=== PATIENT | female | born 1990 | race Caucasian/White ===

== ENCOUNTER 2017-05-30 19:02 | Observation (INO) | payer OTHER ==
[~2017-05-30] VITALS: Ht 149.9 cm; Wt 65.7 kg
[2017-05-30 19:27] LABS: BASOPHILS % (AUTO) 0.6 % (0.0-2.0); EOSINOPHILS % (AUTO) 0.3 % (1.0-6.0); HEMATOCRIT 37.9 % (36-46); HEMOGLOBIN 12.9 g/dL (12.0-16.0); LYMPHOCYTES # (AUTO) 2.2 K/uL (1.0-4.8); LYMPHOCYTES % (AUTO) 22.1 % (22.0-44.0); MEAN CORPUSCULAR HEMOGLOBIN 28.8 pg (26.0-34.0); MEAN CORPUSCULAR HGB CONC 33.9 G/dL (31.0-37.0); MEAN CORPUSCULAR VOLUME 85 fL (80-100); MONOCYTES # (AUTO) 0.7 K/uL (0.1-1.0); MONOCYTES % (AUTO) 6.7 % (2.0-9.0); NEUTROPHILS # (AUTO) 6.9 K/uL (1.8-7.7); PLATELET COUNT (AUTO) 441 K/uL (150-450); RED BLOOD CELL COUNT(AUTO) 4.47 MIL/uL (4.00-5.20)
[2017-05-30 19:39] LABS: ANION GAP 9 mmol/L (8-16); CALCIUM, TOTAL 8.9 mg/dL (8.8-10.5); CARBON DIOXIDE 23 mmol/L (22-29); CHLORIDE 101 mmol/L (98-107); CREATININE 0.52 mg/dL (0.60-1.30); GLOMERULAR FILTR. RATE CALC > 60 mL/min (>60); GLUCOSE,RANDOM 79 mg/dL (70-110); POTASSIUM 4.2 mmol/L (3.5-5.1); SODIUM SERUM 133 mmol/L (136-145); UREA NITROGEN, BLOOD 7 mg/dL (7-18)
[2017-05-30 19:45] LABS: ALANINE AMINOTRANSFERASE 139 U/L (12-78); ALBUMIN 2.5 g/dL (3.4-5.0); ALKALINE PHOSPHATASE 373 U/L (46-116); ASPARTATE AMINOTRANSFERASE 76 U/L (15-37); TOTAL PROTEIN, SERUM 6.9 g/dL (6.4-8.2)
[2017-05-30] MEDS ORDERED: QUES4 PO (19:55)
[2017-05-30 19:57] LABS: NEUTROPHILS % (AUTO) 70.3 % (40.0-70.0); PLATELET MORPHOLOGY COMMENT GIANT PLTS PRESENT
[2017-05-30] MEDS ORDERED: PREN1TAB80 PO (19:57)
[2017-05-30] MEDS ORDERED: URSO300C4 PO (19:59)
[2017-05-30 20:06] VITALS: BP 109/63
[2017-05-30] MEDS ORDERED: INFLUENZA VIRUS VACCINE QVS 2017-18 (3YR+)/PF 60 MCG/0.5 ML SYRINGE IM ONE (20:30)
[2017-05-30] MEDS: BETAMETHASONE SOLUSPAN 6 MG/ML 5 ML VIAL IM SCH (21:40)
[2017-05-30] MEDS: URSODIOL 300 MG CAPSULE PO SCH (21:56)
[2017-05-31] MEDS: URSODIOL 300 MG CAPSULE PO SCH (06:13)
[2017-05-31] MEDS: BETAMETHASONE SOLUSPAN 6 MG/ML 5 ML VIAL IM SCH (09:47)
[2017-05-31 14:05] LABS: GLUCOMETER DEV NAME(LOC) 4S 8; GLUCOSE,POINT OF CARE 84 MG/DL (70-110)
[2017-05-31 14:05] LABS: GLUCOMETER DEV NAME(LOC) 4S 8; GLUCOSE,POINT OF CARE 126 MG/DL (70-110)
[2017-05-31 14:08] LABS: GLUCOMETER DEV NAME(LOC) 4S 8; GLUCOSE,POINT OF CARE 135 MG/DL (70-110)
== END 2017-05-31 10:10 | disposition home or self-care (01) ==
LOC: 4S 19:02
PROVIDERS: ADMIT Obstetrics & Gynecology; ATTEND Obstetrics & Gynecology
DX: Z34.03 Encounter for supervision of normal first pregnancy, third trimester (principal); Z3A.35 35 weeks gestation of pregnancy
CPT/HCPCS: 36415; 59025 ×2; 80053; 82239; 82962 ×2; 83036; 85025; 90471; 96372 ×2; G0378 ×2; J0702 ×2

== ENCOUNTER 2017-06-02 09:02 | Observation (INO) | payer OTHER ==
[~2017-06-02] VITALS: Ht 150 cm; Wt 65.8 kg
[~2017-06-02 09:02] MED LIST: PREN1TAB80 PO; QUES4 PO; URSO300C4 PO
[2017-06-02 09:20] VITALS: BP 120/58
[2017-06-02 09:47] LABS: GLUCOMETER DEV NAME(LOC) 4S 8; GLUCOSE,POINT OF CARE 147 MG/DL (70-110)
== END 2017-06-02 12:00 | disposition home or self-care (01) ==
LOC: 4S 09:02
PROVIDERS: ADMIT Obstetrics & Gynecology; ATTEND Obstetrics & Gynecology
DX: Z34.03 Encounter for supervision of normal first pregnancy, third trimester (principal); Z3A.35 35 weeks gestation of pregnancy
CPT/HCPCS: 59025; 82962; G0378

== ENCOUNTER 2017-06-03 20:00 | Inpatient (IN) | payer OTHER ==
[~2017-06-03] VITALS: Ht 157.5 cm; Wt 64.4 kg
[2017-06-03 20:36] VITALS: BP 120/58
[2017-06-03] MEDS ORDERED: OXYTOCIN 30 UNITS/LACT RINGERS 500 ML IV ONE (20:59)
[2017-06-03] MEDS ORDERED: RINGERS SOLUTION,LACTATED 1,000 ML IV PRN (20:59)
[2017-06-03] MEDS ORDERED: METOCLOPRAMIDE HCL 5 MG/ML 2 ML VIAL IVP PRN (21:00)
[2017-06-03] MEDS ORDERED: CITRIC ACID/SODIUM CITRATE 30 ML SOLUTION UDCUP PO PRN (21:00)
[2017-06-03 21:22] LABS: GLUCOMETER DEV NAME(LOC) 4S 8; GLUCOSE,POINT OF CARE 123 MG/DL (70-110)
[2017-06-03 21:33] LABS: HEMATOCRIT 35.8 % (36-46); HEMOGLOBIN 12.2 g/dL (12.0-16.0); MEAN CORPUSCULAR HEMOGLOBIN 28.6 pg (26.0-34.0); MEAN CORPUSCULAR HGB CONC 33.9 G/dL (31.0-37.0); MEAN CORPUSCULAR VOLUME 84 fL (80-100); PLATELET COUNT (AUTO)-OB 528 K/uL (150-450); RED BLOOD CELL COUNT(AUTO) 4.25 MIL/uL (4.00-5.20); RED CELL DISTRIBUTION WIDTH 13.9 % (11.5-14.5)
[2017-06-03 21:55] LABS: BAND NEUTROPHILS % (MANUAL) 6 % (1-5); LYMPHOCYTES % (MANUAL) 25 % (22-44); MONOCYTES % (MANUAL) 13 % (2-9); SEGMENTED NEUTROPHILS % 56 % (40-70)
[2017-06-03] MEDS ORDERED: AMPICILLIN SODIUM 2 GM/NS 100 ML IV ONE (23:00)
[2017-06-03] MEDS ORDERED: DINOPROSTONE 10 MG VAGINAL SUPPOSITORY VG ONE (23:00)
[2017-06-03] MEDS: URSODIOL 300 MG CAPSULE PO SCH (23:08)
[2017-06-03] MEDS: RINGERS SOLUTION,LACTATED 1,000 ML IV SCH (23:08)
[2017-06-03 23:59] LABS: RUBELLA SCREEN (IGG) IMMUNE (IMMUNE)
[2017-06-04] MEDS: RINGERS SOLUTION,LACTATED 1,000 ML IV SCH ×3 (03:21→16:51)
[2017-06-04] MEDS: AMPICILLIN SODIUM 1 GM/NS 50 ML IV SCH ×5 (03:21→20:32)
[2017-06-04 03:42] LABS: GLUCOMETER DEV NAME(LOC) 4S 8; GLUCOSE,POINT OF CARE 121 MG/DL (70-110)
[2017-06-04] MEDS ORDERED: DEXTROSE 50%-WATER 25 GM/50 ML SYRINGE IVP PRN (07:15)
[2017-06-04] MEDS ORDERED: INSULIN LISPRO 100 UNITS/ML SQ PRN (07:15)
[2017-06-04] MEDS: FentaNYL CITRATE-PF 100 MCG/2 ML VIAL IVP PRN ×4 (07:50→12:49)
[2017-06-04] MEDS ORDERED: OXYGEN THERAPY IH SCH (08:00)
[2017-06-04] MEDS: URSODIOL 300 MG CAPSULE PO SCH ×3 (08:56→21:13)
[2017-06-04] MEDS ORDERED: -PHARMACY NOTE- MISC ONE (10:00)
[2017-06-04] MEDS ORDERED: OXYTOCIN 30 UNITS/LACT RINGERS 500 ML IV PRN (12:10)
[2017-06-04 14:18] LABS: GLUCOMETER DEV NAME(LOC) 4S 8; GLUCOSE,POINT OF CARE 94 MG/DL (70-110)
[2017-06-04 14:18] LABS: GLUCOMETER DEV NAME(LOC) 4S 8; GLUCOSE,POINT OF CARE 116 MG/DL (70-110)
[2017-06-04] MEDS ORDERED: LIDOCAINE HCL/PF 2% 5 ML VIAL ONE (15:38)
[2017-06-04] MEDS ORDERED: ROPIVACAINE HCL/PF 0.2% 100 ML ED ONE ×2 (15:38→22:33)
[2017-06-04] MEDS ORDERED: FentaNYL/BUPIV 0.125%/NS/PF 200 ML ED PRN (16:09)
[2017-06-04] MEDS ORDERED: ONDANSETRON HCL 4 MG/2 ML VIAL IVP PRN (16:15)
[2017-06-04] MEDS ORDERED: NALBUPHINE HCL 10 MG/ML VIAL IVP PRN (16:15)
[2017-06-04] MEDS ORDERED: DiphenhydrAMINE HCL 50 MG/ML VIAL IVP PRN (16:15)
[2017-06-04] MEDS ORDERED: MISOPROSTOL 25 MCG TABLET VG ONE (17:45)
[2017-06-04 21:17] LABS: GLUCOMETER DEV NAME(LOC) 4S 8; GLUCOSE,POINT OF CARE 77 MG/DL (70-110)
[2017-06-04 21:28] LABS: GLUCOMETER DEV NAME(LOC) 4S 8; GLUCOSE,POINT OF CARE 78 MG/DL (70-110)
[2017-06-05] MEDS: AMPICILLIN SODIUM 1 GM/NS 50 ML IV SCH ×2 (00:54→05:14)
[2017-06-05 01:07] LABS: GLUCOMETER DEV NAME(LOC) 4S 8; GLUCOSE,POINT OF CARE 78 MG/DL (70-110)
[2017-06-05 05:27] LABS: GLUCOMETER DEV NAME(LOC) 4S 8; GLUCOSE,POINT OF CARE 89 MG/DL (70-110)
[2017-06-05] MEDS ORDERED: LIDOCAINE HCL/PF 1% 30 ML VIAL ONE ×2 (07:03→07:04)
[2017-06-05] MEDS ORDERED: BENZOCAINE 20%/MENTHOL 56 GM SPRAY CANISTER TP PRN ×2 (08:45→10:00)
[2017-06-05] MEDS ORDERED: LANOLIN 7 GM OINTMENT TP PRN ×2 (08:45→10:00)
[2017-06-05] MEDS ORDERED: GLYCERIN/WITCH HAZEL LEAF 40 PADS JAR TP PRN ×2 (08:45→10:00)
[2017-06-05] MEDS ORDERED: OxyCODONE HCL/ACETAMINOPHEN 5-325 MG TABLET PO PRN ×3 (08:45→10:00)
[2017-06-05] MEDS: MAGNESIUM HYDROXIDE SUSPENSION 30 ML UDCUP PO PRN ×2 (08:47→21:43)
[2017-06-05] MEDS: IBUPROFEN 600 MG TABLET PO PRN ×2 (08:48→18:03)
[2017-06-05] MEDS ORDERED: MAGNESIUM HYDROXIDE SUSPENSION 30 ML UDCUP PO PRN (10:00)
[2017-06-05] MEDS ORDERED: IBUPROFEN 600 MG TABLET PO PRN (10:00)
[2017-06-05] MEDS: OxyCODONE HCL/ACETAMINOPHEN 5-325 MG TABLET PO PRN ×2 (12:25→18:03)
[2017-06-05] MEDS: RINGERS SOLUTION,LACTATED 1,000 ML IV SCH (12:26)
[2017-06-06 07:12] LABS: BASOPHILS % (AUTO) 0.4 % (0.0-2.0); EOSINOPHILS % (AUTO) 0.5 % (1.0-6.0); HEMOGLOBIN 9.6 g/dL (12.0-16.0); LYMPHOCYTES # (AUTO) 2.3 K/uL (1.0-4.8); LYMPHOCYTES % (AUTO) 15.7 % (22.0-44.0); MEAN CORPUSCULAR HGB CONC 34.1 G/dL (31.0-37.0); MEAN CORPUSCULAR VOLUME 85 fL (80-100); MONOCYTES # (AUTO) 1.3 K/uL (0.1-1.0); MONOCYTES % (AUTO) 8.5 % (2.0-9.0); NEUTROPHILS % (AUTO) 74.9 % (40.0-70.0); PLATELET COUNT (AUTO)-OB 401 K/uL (150-450); RED CELL DISTRIBUTION WIDTH 13.9 % (11.5-14.5)
[2017-06-06] MEDS ORDERED: IBUP-2071 PO (07:21)
== END 2017-06-06 12:10 | disposition home or self-care (01) | DRG 775 ==
LOC: 4S 20:00 → OBSVTOIN 20:00
PROVIDERS: ADMIT Obstetrics & Gynecology; ATTEND Obstetrics & Gynecology
PROC: 10E0XZZ Delivery of Products of Conception, External Approach (ICD-10-PCS; principal; 2017-06-05)
PROC: 0DQR0ZZ Repair Anal Sphincter, Open Approach (ICD-10-PCS; 2017-06-05)
PROC: 0W8NXZZ Division of Female Perineum, External Approach (ICD-10-PCS; 2017-06-05)
PROC: 3E0R3BZ Introduction of Anesthetic Agent into Spinal Canal, Percutaneous Approach (ICD-10-PCS; 2017-06-05)
PROC: 00HU33Z Insertion of Infusion Device into Spinal Canal, Percutaneous Approach (ICD-10-PCS; 2017-06-05)
DX: O70.20 Third degree perineal laceration during delivery, unspecified (principal); Z37.0 Single live birth; Z3A.36 36 weeks gestation of pregnancy
CPT/HCPCS: 76811; 82962; 86592; 86762; 86850; 86900; 86901; 87340; J0290; J2590; J2795; J3010; J3490; J7120